=== PATIENT | female | born 1970 | race African-American/Black ===

== ENCOUNTER 2016-04-12 19:38 | Emergency (ER) | payer OTHER ==
[~2016-04-12] VITALS: Ht 157.5 cm; Wt 83.5 kg
[2016-04-12 20:17] VITALS: BP 139/93
[2016-04-12] MEDS ORDERED: ALBUTEROL SULF 2.5 MG/0.5ML(0.5%) NEB SOLN NEB ONE (22:00)
[2016-04-12] MEDS ORDERED: IPRATROPIUM BROM 0.5 MG/2.5ML INH SOL NEB ONE (22:00)
== END 2016-04-12 22:14 | disposition left against medical advice (07) ==
LOC: ER 19:47
DX: R06.02 Shortness of breath (principal); Z53.21 Procedure and treatment not carried out due to patient leaving prior to being seen by health care provider